=== PATIENT | male | born 1965 | race Caucasian/White ===

== ENCOUNTER 2023-12-02 06:50 | Emergency (ER) | payer OTHER ==
[2023-12-02 07:19] LABS: BASOPHILS ABSOLUTE AUTO 0.1 K/mm3 (0.0-0.2); BASOPHILS PERCENT AUTO 0.9 % (0.0-1.0); EOSINOPHILS ABSOLUTE AUTO 0.3 K/mm3 (0.0-0.4); EOSINOPHILS PERCENT AUTO 4.3 % (0.0-6.0); HEMATOCRIT 50.8 % (42.0-52.0); HEMOGLOBIN 17.2 gm/dl (14.0-18.0); IMMATURE GRAN ABSOLUTE AUTO 0.03 K/mm3 (0.00-0.05); IMMATURE GRAN PERCENT AUTO 0.5 % (0.0-0.4); LYMPHOCYTES ABSOLUTE AUTO 1.9 K/mm3 (1.0-4.8); LYMPHOCYTES PERCENT AUTO 29.2 % (24.0-44.0); MEAN CORPUSCULAR HEMOGLOBIN 29.4 pg (28.0-32.0); MEAN CORPUSCULAR HGB CONC 33.9 g/dl (32.0-36.0); MEAN CORPUSCULAR VOLUME 86.8 fl (83.0-99.0); MEAN PLATELET VOLUME 10.2 fl (9.4-12.4); MONOCYTES ABSOLUTE AUTO 0.7 K/mm3 (0.0-0.8); MONOCYTES PERCENT AUTO 10.1 % (0.0-8.0); NEUTROPHILS ABSOLUTE AUTO 3.6 K/mm3 (1.8-7.7); PLATELET COUNT,PLT 256 K/mm3 (150-400); RED BLOOD CELL COUNT 5.85 M/mm3 (4.52-5.90); WHITE BLOOD CELL COUNT,WBC 6.51 K/mm3 (3.9-11.3)
[2023-12-02] MEDS: Aspirin 81 MG Tab.Chew PO ONE (07:23)
[2023-12-02] MEDS: Metoprolol Tartrate 25 MG Tab PO ONE (07:23)
[2023-12-02 07:37] LABS: A/G RATIO 1.1 (1-2); ALBUMIN 4.3 g/dl (3.4-5.0); ANION GAP 16.3 (5-15); BILIRUBIN TOTAL 0.8 mg/dL (0.2-1.0); BUN/CREATININE RATIO 15.4 (14-18); CALCIUM 8.8 mg/dL (8.5-10.1); CREATININE 1.3 mg/dL (0.7-1.3); EST CRCL DRUG DOSING (CG) 67.98 mL/min; MAGNESIUM 2.1 mg/dL (1.8-2.4); PROTEIN TOTAL,TP 8.1 g/dl (6.4-8.2)
[2023-12-02] MEDS: Sodium Chloride 0.9% 10 ML Syringe FLUSH PRN (07:39)
[2023-12-02 07:51] LABS: POTASSIUM,K 4.3 mEq/L (3.5-5.1)
[2023-12-02] MEDS: Famotidine 20 MG/2 ML SDV IVPUSH ONE (08:00)
[2023-12-02] MEDS: Alum Hydrox/Mag Hydrox/Simeth 30 ML, Lidocaine 2% 15 ML PO ONE (08:00)
[2023-12-02] MEDS: Morphine 4 MG/ML Syringe IVPUSH ONE (08:33)
[2023-12-02] MEDS: diphenhydrAMINE 50 MG/ML SDV IVPUSH ONE (08:33)
[2023-12-02] MEDS: Iopamidol 755 Mg/ML 100 ML Bottle IVPUSH ONE (08:55)
[2023-12-02] MEDS: Sodium Chloride 0.9% 10 ML Syringe FLUSH ONE (08:56)
[2023-12-02] MEDS: Sodium Chloride 0.9% 100 ML IV SCH (08:56)
[2023-12-02 19:34] VITALS: BP 151/96; PULSE 66
== END 2023-12-02 11:30 | disposition home or self-care (01) ==
LOC: JD.ED 06:50
DX: R07.9 Chest pain, unspecified (principal); I10 Essential (primary) hypertension; Z79.82 Long term (current) use of aspirin; Z79.02 Long term (current) use of antithrombotics/antiplatelets; Z79.899 Other long term (current) drug therapy; Z91.048 Other nonmedicinal substance allergy status
CPT/HCPCS: 36415; 71045; 71275; 80053; 83735; 84484; 85025; 85379; 93005; 96374; 96375; 99285; A9270; J1200; J2270; J3490; Q9967

== ENCOUNTER 2024-10-15 06:13 | Emergency (ER) | payer OTHER ==
[2024-10-15] MEDS ORDERED: Sodium Chloride 0.9% 10 ML Syringe FLUSH PRN (06:38)
[2024-10-15] MEDS: Aspirin 81 MG Tab.Chew PO ONE (06:50)
[2024-10-15] MEDS: Famotidine 20 MG Tab PO ONE (06:50)
[2024-10-15 06:51] LABS: BASOPHILS ABSOLUTE AUTO 0.1 K/mm3 (0.0-0.2); BASOPHILS PERCENT AUTO 0.9 % (0.0-1.0); EOSINOPHILS ABSOLUTE AUTO 0.2 K/mm3 (0.0-0.4); EOSINOPHILS PERCENT AUTO 2.8 % (0.0-6.0); HEMATOCRIT 48.8 % (42.0-52.0); HEMOGLOBIN 17.1 gm/dl (14.0-18.0); IMMATURE GRAN ABSOLUTE AUTO 0.03 K/mm3 (0.00-0.05); IMMATURE GRAN PERCENT AUTO 0.4 % (0.0-0.4); LYMPHOCYTES ABSOLUTE AUTO 1.9 K/mm3 (1.0-4.8); LYMPHOCYTES PERCENT AUTO 26.3 % (24.0-44.0); MEAN CORPUSCULAR HEMOGLOBIN 29.4 pg (28.0-32.0); MEAN PLATELET VOLUME 10.5 fl (9.4-12.4); MONOCYTES ABSOLUTE AUTO 0.5 K/mm3 (0.0-0.8); MONOCYTES PERCENT AUTO 7.7 % (0.0-8.0); NEUTROPHILS ABSOLUTE AUTO 4.4 K/mm3 (1.8-7.7); NEUTROPHILS PERCENT AUTO 61.9 % (41.0-71.0); PLATELET COUNT,PLT 254 K/mm3 (150-400); RED BLOOD CELL COUNT 5.81 M/mm3 (4.52-5.90); WHITE BLOOD CELL COUNT,WBC 7.03 K/mm3 (3.9-11.3)
[2024-10-15] MEDS: Alum Hydrox/Mag Hydrox/Simeth 30 ML, Lidocaine 2% 15 ML PO ONE (06:53)
[2024-10-15 07:16] LABS: A/G RATIO 1.1 (1-2); ALBUMIN 3.9 g/dl (3.4-5.0); BILIRUBIN TOTAL 0.7 mg/dL (0.2-1.0); BUN/CREATININE RATIO 13.8 (14-18); CALCIUM 8.6 mg/dL (8.5-10.1); CREATININE 1.3 mg/dL (0.7-1.3); EST CRCL DRUG DOSING (CG) 67.15 mL/min; PROTEIN TOTAL,TP 7.5 g/dl (6.4-8.2)
[2024-10-15 09:49] VITALS: BP 136/88; PULSE 67
== END 2024-10-15 09:32 | disposition home or self-care (01) ==
LOC: JD.ED 06:13
DX: R07.89 Other chest pain (principal); I10 Essential (primary) hypertension; Z86.16 Personal history of COVID-19; Z96.659 Presence of unspecified artificial knee joint; Z91.041 Radiographic dye allergy status; Z79.82 Long term (current) use of aspirin; Z79.899 Other long term (current) drug therapy
CPT/HCPCS: 36415; 71045; 80053; 83690; 84484; 85025; 93005; 99285; A9270

== ENCOUNTER 2025-06-17 21:57 | Inpatient (IN) | payer OTHER ==
[2025-06-17 23:00] LABS: BASOPHILS ABSOLUTE AUTO 0.1 K/mm3 (0.0-0.2); BASOPHILS PERCENT AUTO 0.5 % (0.0-1.0); EOSINOPHILS ABSOLUTE AUTO 0.0 K/mm3 (0.0-0.4); EOSINOPHILS PERCENT AUTO 0.3 % (0.0-6.0); IMMATURE GRAN ABSOLUTE AUTO 0.05 K/mm3 (0.00-0.05); IMMATURE GRAN PERCENT AUTO 0.4 % (0.0-0.4); LYMPHOCYTES ABSOLUTE AUTO 1.4 K/mm3 (1.0-4.8); LYMPHOCYTES PERCENT AUTO 10.3 % (24.0-44.0); MEAN PLATELET VOLUME 10.5 fl (9.4-12.4); MONOCYTES ABSOLUTE AUTO 1.4 K/mm3 (0.0-0.8); MONOCYTES PERCENT AUTO 10.8 % (0.0-8.0); NEUTROPHILS ABSOLUTE AUTO 10.2 K/mm3 (1.8-7.7); NEUTROPHILS PERCENT AUTO 77.7 % (41.0-71.0); NRBC ABSOLUTE 0.00 (0.00-0.02); NRBC PERCENT 0.0 % (0.0-0.2); PLATELET COUNT,PLT 248 K/mm3 (150-400); RED BLOOD CELL COUNT 4.86 M/mm3 (4.52-5.90); WHITE BLOOD CELL COUNT,WBC 13.10 K/mm3 (3.9-11.3)
[2025-06-17 23:20] LABS: A/G RATIO 1.1 (1-2); ALANINE AMINOTRANSFERASE,ALT 37.0 U/L (16-63); ASPARTATE AMNIOTRANSFERASE,AST 22.0 U/L (15-37); BILIRUBIN TOTAL 1.4 mg/dL (0.2-1.0); BLOOD UREA NITROGEN,BUN 18.0 mg/dL (7-18); CARBON DIOXIDE,CO2 23.0 mEq/L (21-32); CHLORIDE,CL 105.0 mEq/L (98-107); CREATININE 1.3 mg/dL (0.7-1.3); EST CRCL DRUG DOSING (CG) 67.15 mL/min; ESTIMATED GFR 63.0 mL/min (>60); GLUCOSE RANDOM 123.0 mg/dL (70-99); POTASSIUM,K 3.6 mEq/L (3.5-5.1); PROTEIN TOTAL,TP 7.1 g/dl (6.4-8.2); SODIUM,NA 139.0 mEq/L (136-145)
[2025-06-17 23:23] LABS: LACTIC ACID 0.8 mmol/L (0.4-2.0)
[2025-06-17] MEDS: diphenhydrAMINE 50 MG/ML SDV IVPUSH ONE (23:34)
[2025-06-17] MEDS: Sodium Chloride 0.9% 10 ML Syringe FLUSH ONE (23:35)
[2025-06-17] MEDS: methylPREDNISolone Sodium Succinate 125 MG/2 ML SDV IVPUSH ONE (23:37)
[2025-06-17] MEDS: VANCOmycin 2 GM/400 ML 2 GM in Premix Bag 1 BAG IV ONE (23:48)
[2025-06-18] MEDS: Iopamidol 612 MG/ML 100 ML Bottle IVPUSH ONE (00:05)
[2025-06-18] MEDS: Iopamidol 612 MG/ML 30 ML SDV IVPUSH ONE (00:05)
[2025-06-18] MEDS: Sodium Chloride 0.9% 10 ML Syringe FLUSH PRN (00:05)
[2025-06-18 00:46] LABS: APPEARANCE,URINE CLEAR (Clear); GLUCOSE,URINE NEGATIVE (Negative); OCCULT BLOOD,URINE NEGATIVE (Negative)
[2025-06-18] MEDS ORDERED: Naloxone 0.4 MG/ML SDV IVPUSH PRN (01:23)
[2025-06-18 05:09] LABS: A/G RATIO 1.0 (1-2); ALANINE AMINOTRANSFERASE,ALT 34.0 U/L (16-63); ASPARTATE AMNIOTRANSFERASE,AST 17.0 U/L (15-37); BASOPHILS ABSOLUTE AUTO 0.0 K/mm3 (0.0-0.2); BASOPHILS PERCENT AUTO 0.2 % (0.0-1.0); BILIRUBIN TOTAL 1.2 mg/dL (0.2-1.0); BLOOD UREA NITROGEN,BUN 17.0 mg/dL (7-18); CARBON DIOXIDE,CO2 22.0 mEq/L (21-32); CHLORIDE,CL 106.0 mEq/L (98-107); CREATININE 1.4 mg/dL (0.7-1.3); EOSINOPHILS ABSOLUTE AUTO 0.0 K/mm3 (0.0-0.4); EOSINOPHILS PERCENT AUTO 0.1 % (0.0-6.0); EST CRCL DRUG DOSING (CG) 62.36 mL/min; ESTIMATED GFR 58.0 mL/min (>60); GLUCOSE RANDOM 195.0 mg/dL (70-99); IMMATURE GRAN ABSOLUTE AUTO 0.08 K/mm3 (0.00-0.05); IMMATURE GRAN PERCENT AUTO 0.6 % (0.0-0.4); LYMPHOCYTES ABSOLUTE AUTO 0.8 K/mm3 (1.0-4.8); LYMPHOCYTES PERCENT AUTO 5.8 % (24.0-44.0); MEAN PLATELET VOLUME 10.9 fl (9.4-12.4); MONOCYTES ABSOLUTE AUTO 0.3 K/mm3 (0.0-0.8); MONOCYTES PERCENT AUTO 2.3 % (0.0-8.0); NEUTROPHILS ABSOLUTE AUTO 12.3 K/mm3 (1.8-7.7); NEUTROPHILS PERCENT AUTO 91.0 % (41.0-71.0); NRBC ABSOLUTE 0.00 (0.00-0.02); NRBC PERCENT 0.0 % (0.0-0.2); PHOSPHORUS 2.5 mg/dL (2.6-4.7); PLATELET COUNT,PLT 239 K/mm3 (150-400); POTASSIUM,K 3.9 mEq/L (3.5-5.1); PROTEIN TOTAL,TP 6.9 g/dl (6.4-8.2); RED BLOOD CELL COUNT 4.98 M/mm3 (4.52-5.90); SODIUM,NA 139.0 mEq/L (136-145); WHITE BLOOD CELL COUNT,WBC 13.53 K/mm3 (3.9-11.3)
[2025-06-18] MEDS ORDERED: Ondansetron 4 MG/2 ML SDV IV PRN (05:49)
[2025-06-18] MEDS: VANCOmycin 1.5 GM/300 ML 1.5 GM in Premix Bag 1 BAG IV SCH (10:41)
[2025-06-19] MEDS: VANCOmycin 1.5 GM/300 ML 1.5 GM in Premix Bag 1 BAG IV SCH (05:07)
[2025-06-19 05:32] LABS: BASOPHILS ABSOLUTE AUTO 0.0 K/mm3 (0.0-0.2); BASOPHILS PERCENT AUTO 0.2 % (0.0-1.0); EOSINOPHILS ABSOLUTE AUTO 0.1 K/mm3 (0.0-0.4); EOSINOPHILS PERCENT AUTO 0.4 % (0.0-6.0); IMMATURE GRAN ABSOLUTE AUTO 0.07 K/mm3 (0.00-0.05); IMMATURE GRAN PERCENT AUTO 0.5 % (0.0-0.4); LYMPHOCYTES ABSOLUTE AUTO 2.4 K/mm3 (1.0-4.8); LYMPHOCYTES PERCENT AUTO 16.6 % (24.0-44.0); MEAN PLATELET VOLUME 10.4 fl (9.4-12.4); MONOCYTES ABSOLUTE AUTO 1.1 K/mm3 (0.0-0.8); MONOCYTES PERCENT AUTO 7.4 % (0.0-8.0); NEUTROPHILS ABSOLUTE AUTO 10.8 K/mm3 (1.8-7.7); NEUTROPHILS PERCENT AUTO 74.9 % (41.0-71.0); NRBC ABSOLUTE 0.00 (0.00-0.02); NRBC PERCENT 0.0 % (0.0-0.2); PLATELET COUNT,PLT 257 K/mm3 (150-400); RED BLOOD CELL COUNT 4.74 M/mm3 (4.52-5.90); WHITE BLOOD CELL COUNT,WBC 14.39 K/mm3 (3.9-11.3)
[2025-06-19 05:50] LABS: A/G RATIO 0.8 (1-2); ALANINE AMINOTRANSFERASE,ALT 27.0 U/L (16-63); ASPARTATE AMNIOTRANSFERASE,AST 14.0 U/L (15-37); BILIRUBIN TOTAL 0.6 mg/dL (0.2-1.0); BLOOD UREA NITROGEN,BUN 22.0 mg/dL (7-18); CARBON DIOXIDE,CO2 23.0 mEq/L (21-32); CHLORIDE,CL 106.0 mEq/L (98-107); CREATININE 1.1 mg/dL (0.7-1.3); EST CRCL DRUG DOSING (CG) 78.38 mL/min; ESTIMATED GFR 77.0 mL/min (>60); GLUCOSE RANDOM 121.0 mg/dL (70-99); POTASSIUM,K 3.9 mEq/L (3.5-5.1); PROTEIN TOTAL,TP 6.2 g/dl (6.4-8.2); SODIUM,NA 140.0 mEq/L (136-145)
[2025-06-19] MEDS ORDERED: Pharmacy Consult Order SCH (08:30)
[2025-06-20 05:31] LABS: BASOPHILS ABSOLUTE AUTO 0.1 K/mm3 (0.0-0.2); BASOPHILS PERCENT AUTO 0.7 % (0.0-1.0); EOSINOPHILS ABSOLUTE AUTO 0.2 K/mm3 (0.0-0.4); EOSINOPHILS PERCENT AUTO 2.3 % (0.0-6.0); IMMATURE GRAN ABSOLUTE AUTO 0.05 K/mm3 (0.00-0.05); IMMATURE GRAN PERCENT AUTO 0.5 % (0.0-0.4); LYMPHOCYTES ABSOLUTE AUTO 2.0 K/mm3 (1.0-4.8); LYMPHOCYTES PERCENT AUTO 20.1 % (24.0-44.0); MEAN PLATELET VOLUME 10.1 fl (9.4-12.4); MONOCYTES ABSOLUTE AUTO 1.0 K/mm3 (0.0-0.8); MONOCYTES PERCENT AUTO 9.9 % (0.0-8.0); NEUTROPHILS ABSOLUTE AUTO 6.6 K/mm3 (1.8-7.7); NEUTROPHILS PERCENT AUTO 66.5 % (41.0-71.0); NRBC ABSOLUTE 0.00 (0.00-0.02); NRBC PERCENT 0.0 % (0.0-0.2); PLATELET COUNT,PLT 267 K/mm3 (150-400); RED BLOOD CELL COUNT 4.91 M/mm3 (4.52-5.90); WHITE BLOOD CELL COUNT,WBC 9.93 K/mm3 (3.9-11.3)
[2025-06-20 06:05] LABS: A/G RATIO 0.8 (1-2); ALANINE AMINOTRANSFERASE,ALT 34.0 U/L (16-63); ASPARTATE AMNIOTRANSFERASE,AST 20.0 U/L (15-37); BILIRUBIN TOTAL 0.7 mg/dL (0.2-1.0); BLOOD UREA NITROGEN,BUN 22.0 mg/dL (7-18); CARBON DIOXIDE,CO2 23.0 mEq/L (21-32); CHLORIDE,CL 105.0 mEq/L (98-107); CREATININE 1.4 mg/dL (0.7-1.3); EST CRCL DRUG DOSING (CG) 61.59 mL/min; ESTIMATED GFR 58.0 mL/min (>60); GLUCOSE RANDOM 124.0 mg/dL (70-99); POTASSIUM,K 3.9 mEq/L (3.5-5.1); PROTEIN TOTAL,TP 6.5 g/dl (6.4-8.2); SODIUM,NA 139.0 mEq/L (136-145)
[2025-06-21 05:42] LABS: BASOPHILS ABSOLUTE AUTO 0.1 K/mm3 (0.0-0.2); BASOPHILS PERCENT AUTO 0.7 % (0.0-1.0); EOSINOPHILS ABSOLUTE AUTO 0.2 K/mm3 (0.0-0.4); EOSINOPHILS PERCENT AUTO 2.7 % (0.0-6.0); IMMATURE GRAN ABSOLUTE AUTO 0.05 K/mm3 (0.00-0.05); IMMATURE GRAN PERCENT AUTO 0.6 % (0.0-0.4); LYMPHOCYTES ABSOLUTE AUTO 1.9 K/mm3 (1.0-4.8); LYMPHOCYTES PERCENT AUTO 22.5 % (24.0-44.0); MEAN PLATELET VOLUME 10.4 fl (9.4-12.4); MONOCYTES ABSOLUTE AUTO 0.7 K/mm3 (0.0-0.8); MONOCYTES PERCENT AUTO 8.8 % (0.0-8.0); NEUTROPHILS ABSOLUTE AUTO 5.4 K/mm3 (1.8-7.7); NEUTROPHILS PERCENT AUTO 64.7 % (41.0-71.0); NRBC ABSOLUTE 0.00 (0.00-0.02); NRBC PERCENT 0.0 % (0.0-0.2); PLATELET COUNT,PLT 294 K/mm3 (150-400); RED BLOOD CELL COUNT 5.11 M/mm3 (4.52-5.90); WHITE BLOOD CELL COUNT,WBC 8.37 K/mm3 (3.9-11.3)
[2025-06-21 05:44] LABS: A/G RATIO 0.8 (1-2); ALANINE AMINOTRANSFERASE,ALT 36.0 U/L (16-63); ASPARTATE AMNIOTRANSFERASE,AST 21.0 U/L (15-37); BILIRUBIN TOTAL 0.7 mg/dL (0.2-1.0); BLOOD UREA NITROGEN,BUN 20.0 mg/dL (7-18); CARBON DIOXIDE,CO2 24.0 mEq/L (21-32); CHLORIDE,CL 104.0 mEq/L (98-107); CREATININE 1.3 mg/dL (0.7-1.3); EST CRCL DRUG DOSING (CG) 66.32 mL/min; ESTIMATED GFR 63.0 mL/min (>60); GLUCOSE RANDOM 129.0 mg/dL (70-99); POTASSIUM,K 3.9 mEq/L (3.5-5.1); PROTEIN TOTAL,TP 6.7 g/dl (6.4-8.2); SODIUM,NA 138.0 mEq/L (136-145)
[2025-06-22 04:48] LABS: BASOPHILS ABSOLUTE AUTO 0.1 K/mm3 (0.0-0.2); BASOPHILS PERCENT AUTO 0.9 % (0.0-1.0); EOSINOPHILS ABSOLUTE AUTO 0.3 K/mm3 (0.0-0.4); EOSINOPHILS PERCENT AUTO 3.1 % (0.0-6.0); IMMATURE GRAN ABSOLUTE AUTO 0.13 K/mm3 (0.00-0.05); IMMATURE GRAN PERCENT AUTO 1.6 % (0.0-0.4); LYMPHOCYTES ABSOLUTE AUTO 1.9 K/mm3 (1.0-4.8); LYMPHOCYTES PERCENT AUTO 23.9 % (24.0-44.0); MEAN PLATELET VOLUME 10.2 fl (9.4-12.4); MONOCYTES ABSOLUTE AUTO 0.6 K/mm3 (0.0-0.8); MONOCYTES PERCENT AUTO 7.6 % (0.0-8.0); NEUTROPHILS ABSOLUTE AUTO 5.0 K/mm3 (1.8-7.7); NEUTROPHILS PERCENT AUTO 62.9 % (41.0-71.0); NRBC ABSOLUTE 0.00 (0.00-0.02); NRBC PERCENT 0.0 % (0.0-0.2); PLATELET COUNT,PLT 308 K/mm3 (150-400); RED BLOOD CELL COUNT 5.21 M/mm3 (4.52-5.90); WHITE BLOOD CELL COUNT,WBC 7.99 K/mm3 (3.9-11.3)
[2025-06-22 04:59] LABS: A/G RATIO 0.8 (1-2); ALANINE AMINOTRANSFERASE,ALT 50.0 U/L (16-63); ASPARTATE AMNIOTRANSFERASE,AST 32.0 U/L (15-37); BILIRUBIN TOTAL 0.7 mg/dL (0.2-1.0); BLOOD UREA NITROGEN,BUN 18.0 mg/dL (7-18); CARBON DIOXIDE,CO2 24.0 mEq/L (21-32); CHLORIDE,CL 103.0 mEq/L (98-107); CREATININE 1.2 mg/dL (0.7-1.3); EST CRCL DRUG DOSING (CG) 71.85 mL/min; ESTIMATED GFR 69.0 mL/min (>60); GLUCOSE RANDOM 123.0 mg/dL (70-99); POTASSIUM,K 4.0 mEq/L (3.5-5.1); PROTEIN TOTAL,TP 7.0 g/dl (6.4-8.2); SODIUM,NA 137.0 mEq/L (136-145)
[2025-06-23 14:36] VITALS: BP 149/99; PULSE 62
== END 2025-06-23 15:55 | disposition home or self-care (01) | DRG 603 ==
LOC: JD.ED 21:57 → JD.MS 06-18 01:27
PROVIDERS: ADMIT Family Medicine; ATTEND Student in an Organized Health Care Education/Training Program
PROC: 02HV33Z Insertion of Infusion Device into Superior Vena Cava, Percutaneous Approach (ICD-10-PCS; principal; 2025-06-18)
DX: L03.113 Cellulitis of right upper limb (principal); R73.9 Hyperglycemia, unspecified; M70.21 Olecranon bursitis, right elbow; E78.5 Hyperlipidemia, unspecified; G47.33 Obstructive sleep apnea (adult) (pediatric); K21.9 Gastro-esophageal reflux disease without esophagitis; I25.10 Atherosclerotic heart disease of native coronary artery without angina pectoris; R73.03 Prediabetes; E78.00 Pure hypercholesterolemia, unspecified; I10 Essential (primary) hypertension; G47.30 Sleep apnea, unspecified; E66.9 Obesity, unspecified; Z96.659 Presence of unspecified artificial knee joint; Z68.33 Body mass index [BMI] 33.0-33.9, adult; Z86.16 Personal history of COVID-19; Z95.1 Presence of aortocoronary bypass graft; Z88.8 Allergy status to other drugs, medicaments and biological substances; Z79.82 Long term (current) use of aspirin; Z79.899 Other long term (current) drug therapy; Z98.890 Other specified postprocedural states
CPT/HCPCS: 36415; 36569; 71045; 71045-26; 73201-26-RT; 73201-RT; 80053; 80202; 81003; 83605; 83735; 83880; 84100; 85025; 86140; 87040; 87077; 87154; 87186; 87641; 93306; 93971-26-RT; 93971-RT; 96365; 96375; 99285; 99285-25; A9270-GY; J0690; J0696; J1200; J1650; J2919; J3375; J7030; Q9967

== ENCOUNTER 2025-07-18 06:29 | Emergency (ER) | payer OTHER ==
[2025-07-18 07:53] LABS: BASOPHILS ABSOLUTE AUTO 0.1 K/mm3 (0.0-0.2); BASOPHILS PERCENT AUTO 1.1 % (0.0-1.0); EOSINOPHILS ABSOLUTE AUTO 0.3 K/mm3 (0.0-0.4); EOSINOPHILS PERCENT AUTO 5.4 % (0.0-6.0); IMMATURE GRAN ABSOLUTE AUTO 0.02 K/mm3 (0.00-0.05); IMMATURE GRAN PERCENT AUTO 0.4 % (0.0-0.4); LYMPHOCYTES ABSOLUTE AUTO 1.4 K/mm3 (1.0-4.8); LYMPHOCYTES PERCENT AUTO 25.5 % (24.0-44.0); MEAN PLATELET VOLUME 10.3 fl (9.4-12.4); MONOCYTES ABSOLUTE AUTO 0.6 K/mm3 (0.0-0.8); MONOCYTES PERCENT AUTO 10.2 % (0.0-8.0); NEUTROPHILS ABSOLUTE AUTO 3.1 K/mm3 (1.8-7.7); NEUTROPHILS PERCENT AUTO 57.4 % (41.0-71.0); NRBC ABSOLUTE 0.00 (0.00-0.02); NRBC PERCENT 0.0 % (0.0-0.2); PLATELET COUNT,PLT 240 K/mm3 (150-400); RED BLOOD CELL COUNT 5.33 M/mm3 (4.52-5.90); WHITE BLOOD CELL COUNT,WBC 5.38 K/mm3 (3.9-11.3)
[2025-07-18 08:22] LABS: A/G RATIO 1.1 (1-2); ALANINE AMINOTRANSFERASE,ALT 69.0 U/L (16-63); ASPARTATE AMNIOTRANSFERASE,AST 37.0 U/L (15-37); BILIRUBIN TOTAL 0.8 mg/dL (0.2-1.0); BLOOD UREA NITROGEN,BUN 13.0 mg/dL (7-18); CARBON DIOXIDE,CO2 23.0 mEq/L (21-32); CHLORIDE,CL 104.0 mEq/L (98-107); CREATINE KINASE,CK 180.0 U/L (39-308); CREATININE 1.2 mg/dL (0.7-1.3); EST CRCL DRUG DOSING (CG) 69.72 mL/min; ESTIMATED GFR 69.0 mL/min (>60); GLUCOSE RANDOM 138.0 mg/dL (70-99); POTASSIUM,K 3.6 mEq/L (3.5-5.1); PROTEIN TOTAL,TP 7.3 g/dl (6.4-8.2); SODIUM,NA 140.0 mEq/L (136-145)
[2025-07-18] MEDS: VANCOmycin 2 GM/400 ML 2 GM in Premix Bag 1 BAG IV ONE (10:45)
[2025-07-18 13:29] VITALS: BP 152/87; PULSE 64
== END 2025-07-18 13:10 | disposition home or self-care (01) ==
LOC: JD.ED 06:29
DX: T80.218A Other infection due to central venous catheter, initial encounter (principal); B95.61 Methicillin susceptible Staphylococcus aureus infection as the cause of diseases classified elsewhere; R78.81 Bacteremia; I25.10 Atherosclerotic heart disease of native coronary artery without angina pectoris; I10 Essential (primary) hypertension; E78.00 Pure hypercholesterolemia, unspecified; K21.9 Gastro-esophageal reflux disease without esophagitis; Z95.5 Presence of coronary angioplasty implant and graft; Z91.048 Other nonmedicinal substance allergy status; Z79.82 Long term (current) use of aspirin; Z79.899 Other long term (current) drug therapy; Z79.02 Long term (current) use of antithrombotics/antiplatelets; Z86.16 Personal history of COVID-19; Z95.1 Presence of aortocoronary bypass graft
CPT/HCPCS: 36415; 80053; 82550; 83605; 83735; 84145; 85025; 86140; 87040; 87070; 87075; 87205; 93971-26-LT; 93971-LT; 96365; 96366; 99284; 99284-25; J3375